=== PATIENT | male | born 1980 | race Caucasian/White ===

== ENCOUNTER 2017-01-24 09:18 | Emergency (ER) | payer SELFPAY ==
[2017-01-24 09:22] VITALS: BMI 29.0
[2017-01-24] MEDS ORDERED: ACETAMINOPHEN INJECTION 100 ML IVPB ONE (10:28)
[2017-01-24 10:40] LABS: PH,URINE 5.5 (4.5-8); URINE APPEARANCE Clear; URINE BILIRUBIN 1+ (NEGATIVE); URINE BLOOD Negative (NEGATIVE); URINE GLUCOSE (UA) Trace (NEGATIVE); URINE KETONE Trace (NEGATIVE); URINE LEUK ESTERASE Negative (NEGATIVE); URINE NITRITE Negative (NEGATIVE)
[2017-01-24 10:42] LABS: MCH 30.8 pg (25.7-33.7); MCHC 34.2 g/dl (32.0-35.9); MEAN CELL VOLUME 90.2 fl (80-96); MEAN PLT VOLUME 9.3 fl (7.5-11.1); PLATELET COUNT 232 K/MM3 (134-434); RDW 12.2 % (11.9-15.9); URINE COLOR YELLOW; URINE PROTEIN 2+ (NEGATIVE); WHITE BLOOD COUNT 18.2 K/mm3 (4.0-10.8)
[2017-01-24 10:43] LABS: URINE BACTERIA MODERATE /hpf (NEGATIVE); URINE RBC 0-3 /hpf (0-3); URINE WBC 0-3 (3-5)
[2017-01-24 11:10] LABS: ALBUMIN 4.3 g/dl (3.5-5.0); ALK PHOS 64 U/L (32-92); ANION GAP 8 (8-16); CALCIUM 9.1 mg/dl (8.4-10.2); CO2 25 mmol/L (22-28); GLUCOSE,RANDOM 142 mg/dl (74-106); SGOT/AST 21 U/L (10-42); SGPT/ALT 18 U/L (10-40); TOT PROT 8.3 g/dl (6.4-8.3)
[2017-01-24 11:12] LABS: PLATELET ESTIMATE ADEQUATE (NORMAL)
[2017-01-24 11:43] LABS: BILIRUBIN,TOTAL 0.4 mg/dl (0.2-1.0)
[2017-01-24] MEDS ORDERED: KETOROLAC TROMETHAMINE 30 MG/1 ML VIAL ONE (12:24)
[2017-01-24 12:29] VITALS: PULSE 95; TEMP 99.5
--- NOTE | 2017-01-24 13:00 | PDOC ---
History of Present Illness - General Chief Complaint: Cold Symptoms Stated Complaint: FEVER Time Seen by Provider: 01/24/17 09:20 History Source: Patient Exam Limitations: No Limitations - History of Present Illness Initial Comments: 01/24/17 12:39 The patient is a 36M with no PMH who presents to the ED with multiple complaints. The patient states that he "has the flu" with sharp pains in his abdomen. The patient has had the flu before and states this is exactly like it, with accompanying muscle aches, night sweats, fever and chills. The abdominal pain is diffuse, does not radiate, and "sometimes" effects his chest. Denies CP , SOB. Past History - Past Medical History Allergies/Adverse Reactions: Allergies Allergy/AdvReac Type Severity Reaction Status Date / Time No Known Allergies Allergy Verified 01/24/17 09:19 Home Medications: Ambulatory Orders NK [No Known Home Medication] 01/24/17 Other medical history: DENIES - Psycho/Social/Smoking Cessation Hx Anxiety: No Suicidal Ideation: No Smoking History: Current every day smoker Number of Cigarettes Smoked Daily: 6 Information on smoking cessation initiated: Yes 'Breaking Loose' booklet given: 01/24/17 Hx Alcohol Use: Yes Drug/Substance Use Hx: No Substance Use Type: Alcohol Review of Systems - Review of Systems Able to Perform ROS?: Yes Is the patient limited Malagasy proficient: No Constitutional: Yes: Chills, Fever, Night Sweats HEENTM: Yes: Throat Pain Respiratory: No: Cough, Shortness of Breath Cardiac (ROS): No: Chest Pain ABD/GI: Yes: Difficulty Swallowing, Other (abd pain). No: Constipated, Diarrhea , Nausea, Poor Appetite, Poor Fluid Intake, Vomiting, Abdominal cramping : No: Burning, Dysuria, Discharge, Hematuria Neurological: No: Headache, Numbness, Tingling, Weakness *Physical Exam - Vital Signs Last Vital Signs Temp Pulse Resp BP Pulse Ox 99.5 F 95 H 18 138/84 99 01/24/17 12:28 01/24/17 12:28 01/24/17 12:28 01/24/17 12:28 01/24/17 12:28 - Physical Exam General Appearance: Yes: Nourished, Appropriately Dressed HEENT: positive: Normal Voice, Tonsillar Erythema, Hearing Grossly Normal. negative: TM Bulging, TM Dull, TM Erythema Neck: positive: Supple. negative: Rigid Respiratory/Chest: positive: Lungs Clear, Normal Breath Sounds. negative: Chest Tender, Respiratory Distress, Accessory Muscle Use, Rhonchi, Stridor, Wheezing Cardiovascular: positive: Regular Rhythm, Regular Rate, S1, S2. negative: Diastolic Murmur, Systolic Murmur Gastrointestinal/Abdominal: positive: Tender, Soft, Tenderness (diffuse). negative: Guarding, Rebound Integumentary: positive: Warm, Diaphoresis Neurologic: positive: Fully Oriented, Alert, Normal Mood/Affect, Motor Strength / ED Treatment Course - LABORATORY CBC & Chemistry Diagram: 01/24/17 10:25 01/24/17 10:25 - ADDITIONAL ORDERS Additional order review: Laboratory Results 01/24/17 01/24/17 10:25 10:25 Sodium 132 L Potassium 3.5 Chloride 99 Carbon Dioxide 25 Anion Gap 8 BUN 13 Creatinine 1.0 Creat Clearance w eGFR > 60 Random Glucose 142 H Calcium 9.1 Total Bilirubin 0.4 AST 21 ALT 18 Alkaline Phosphatase 64 Total Protein 8.3 Albumin 4.3 Urine Color Yellow Urine Appearance Clear Urine pH 5.5 Ur Specific [place] >= 1.030 H Urine Protein 2+ H Urine Glucose (UA) Trace Urine Ketones Trace Urine Blood Negative Urine Nitrite Negative Urine Bilirubin 1+ H Urine Urobilinogen 1.0 Urine RBC 0-3 Urine WBC 0-3 Ur Epithelial Cells Moderate Urine Bacteria Moderate Hyaline Casts 3-5 01/24/17 09:24 Group A Strep Rapid Antigen - Final Throat NEGATIVE FOR THE ANTIGEN OF BETA HEMOLYTIC STREP GROUP A 01/24/17 10:25 RBC 5.42 MCV 90.2 MCHC 34.2 RDW 12.2 MPV 9.3 Neutrophils % Y Lymphocytes % Y Medical Decision Making - Medical Decision Making 01/24/17 13:04 Patient is a 36M with flu-like symptoms and abdominal pain. CT was ordered by attending and shows sigmoid colon diverticulitis with gross free air. Dr. Fierro has been called and is aware of the patient. Hospitalist raven Magana IVF. 01/24/17 13:14 Spoke with Kristyn Yi NP and she recommends transfer to [facility]. Will discuss the transfer with Dr. Whitlock. 01/24/17 13:23 Dr. Whitlock is speaking with the family on the phone with regards to the patient 's options. Denia [employer] LIEUT[employer]NT insists on transfer to [facility]. Face sheet will be faxed. 01/24/17 15:17 Mother does not want patient transferred to [facility] facility and wants AMA form. Patient signed AMA form and will leave with all reports and labs and CT imaging. I discussed with the worst case scenario, which includes , for the patient. Patient agrees. *DC/Admit/Observation/Transfer Diagnosis at time of Disposition: Diverticulitis of colon with perforation Qualifiers: Diverticulitis bleeding: without bleeding Qualified Code(s): K57.20 - Diverticulitis of large intestine with perforation and abscess without bleeding - Discharge Dispostion Disposition: AGAINST MEDICAL ADVICE Condition at time of disposition: Guarded Admit: No
[2017-01-24] MEDS ORDERED: PIPERACILLIN/TAZOB 3.375 GM/50 ML PRE-DOCKED IV ONE (13:01)
[2017-01-24] MEDS ORDERED: PIPERACILLIN/TAZOBACTAM 3.375 GM VIAL IVPB ONE (13:06)
[2017-01-24] MEDS ORDERED: ACETAMINOPHEN 1000 MG/100 ML VIAL (NON FORMULARY) IVPB ONE (13:37)
[2017-01-24] MEDS ORDERED: KETOROLAC TROMETHAMINE 30 MG/1 ML VIAL IVPUSH ONE (13:39)
--- NOTE | 2017-01-24 13:42 | HP ---
CHIEF COMPLAINT: abdominal pain PCP: "I don't have a doctor" HISTORY OF PRESENT ILLNESS: Patient is a 36 y/o male with a past medical history of asthma (last exacerbation was 10 years ago). patient reports lower abdominal pain, chills and tactile fever since yesterday evening. He reports generalized bodyaches with sharp lower abdominal pain today and sought evaluation in the emergency department. 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 Smoking: "a couple of cigarrettes daily" Alcohol: social Drugs: none Family History: mother alive and well Allergies No Known Allergies Allergy (Verified 01/24/17 09:19) HOME MEDICATIONS: Home Medications Medication Instructions Recorded NK [No Known Home Medication] 01/24/17 REVIEW OF SYSTEMS CONSTITUTIONAL: Absent: fever, chills, diaphoresis, generalized weakness, malaise, loss of appetite, weight change HEENT: Absent: rhinorrhea, nasal congestion, throat pain, throat swelling, difficulty swallowing, mouth swelling, ear pain, eye pain, visual changes CARDIOVASCULAR: Absent: chest pain, syncope, palpitations, irregular heart rate, lightheadedness , peripheral edema RESPIRATORY: Absent: cough, shortness of breath, dyspnea with exertion, orthopnea, wheezing, stridor, hemoptysis GASTROINTESTINAL: present: abdominal pain Absent: abdominal distension, nausea, vomiting, diarrhea, constipation, melena , hematochezia GENITOURINARY: Absent: dysuria, frequency, urgency, hesitancy, hematuria, flank pain, genital pain MUSCULOSKELETAL: Absent: myalgia, arthralgia, joint swelling, back pain, neck pain SKIN: Absent: rash, itching, pallor HEMATOLOGIC/IMMUNOLOGIC: Absent: easy bleeding, easy bruising, lymphadenopathy, frequent infections ENDOCRINE: Absent: unexplained weight gain, unexplained weight loss, heat intolerance, cold intolerance NEUROLOGIC: Absent: headache, focal weakness or paresthesias, dizziness, unsteady gait, seizure, mental status changes, bladder or bowel incontinence PSYCHIATRIC: Absent: anxiety, depression, suicidal or homicidal ideation, hallucinations. PHYSICAL EXAMINATION Vital Signs - 24 hr 01/24/17 01/24/17 09:18 12:28 Temperature 99.4 F 99.5 F Pulse Rate 97 H Pulse Rate [ 95 H Right] Respiratory 18 18 Rate Blood Pressure 140/79 Blood Pressure 138/84 [Left Arm] O2 Sat by Pulse 98 99 Oximetry (%) GENERAL: Awake, alert, and fully oriented, in no acute distress. HEAD: Normal with no signs of trauma. EYES: Pupils equal, round and reactive to light, extraocular movements intact, sclera anicteric, conjunctiva clear. No lid lag. EARS, NOSE, THROAT: Ears normal, nares patent, oropharynx clear without exudates. Moist mucous membranes. NECK: Normal range of motion, supple without lymphadenopathy, JVD, or masses. LUNGS: Breath sounds equal, clear to auscultation bilaterally. No wheezes, and no crackles. No accessory muscle use. HEART: Regular rate and rhythm, normal S1 and S2 without murmur, rub or gallop. ABDOMEN: Soft, diffuse abdominal pain tenderness, hypoactive bowel sounds, not distended, no guarding, no rebound, no masses. No hepatomegaly or splenomegaly. MUSCULOSKELETAL: Normal range of motion at all joints. No bony deformities or tenderness. No CVA tenderness. UPPER EXTREMITIES: 2+ pulses, warm, well-perfused. No cyanosis. No clubbing. No peripheral edema. LOWER EXTREMITIES: 2+ pulses, warm, well-perfused. No calf tenderness. No peripheral edema. NEUROLOGICAL: Cranial nerves II-XII intact. Normal speech. Normal gait. PSYCHIATRIC: Cooperative. Good eye contact. Appropriate mood and affect. SKIN: Warm, dry, normal turgor, no rashes or lesions noted, normal capillary refill. Laboratory Results - last 24 hr 01/24/17 01/24/17 01/24/17 10:25 10:25 10:25 WBC 18.2 H RBC 5.42 Hgb 16.7 Hct 48.9 MCV 90.2 MCH 30.8 MCHC 34.2 RDW 12.2 Plt Count 232 MPV 9.3 Neutrophils % Y Neutrophils % (Manual) 69 Band Neuts % (Manual) 9 Lymphocytes % Y Lymphocytes % (Manual) 15 Monocytes % (Manual) 4 Platelet Estimate Adequate Sodium 132 L Potassium 3.5 Chloride 99 Carbon Dioxide 25 Anion Gap 8 BUN 13 Creatinine 1.0 Creat Clearance w eGFR > 60 Random Glucose 142 H Calcium 9.1 Total Bilirubin 0.4 AST 21 ALT 18 Alkaline Phosphatase 64 Total Protein 8.3 Albumin 4.3 Urine Color Yellow Urine Appearance Clear Urine pH 5.5 Ur Specific [place] >= 1.030 H Urine Protein 2+ H Urine Glucose (UA) Trace Urine Ketones Trace Urine Blood Negative Urine Nitrite Negative Urine Bilirubin 1+ H Urine Urobilinogen 1.0 Urine RBC 0-3 Urine WBC 0-3 Ur Epithelial Cells Moderate Urine Bacteria Moderate Hyaline Casts 3-5 ASSESSMENT/PLAN: F/E/N - npo-->ivf - replete lyes prn ppx - pepcid - hold ac for pending or dispo: lengthy conversation with patient and mother, both patient and mother declines transfer to [facility], patient made aware if his condition detoriates he will require emergent intervention that is not available at [facility] after 4pm and as a result his care will be delayed which may result in , patient and mother verbalize understanding and admantly decline transfer to [facility]. patient t requires inpatient admission Problem List - Problem (1) Perforation of sigmoid colon due to diverticulitis Assessment/Plan: - continue zosyn, appreciate ID input for abx clearence - npo-->ivf - lengthy conversation with patient, requesting to defer surgery at this time and wishes to continue IV abx for the next 12 hours and re-evaluate. - Dr Fierro, general surgeon consulted and following Code(s): K57.20 - DVTRCLI OF LG INT W PERFORATION AND ABSCESS W/O BLEEDING (2) Asthma Code(s): J45.909 - UNSPECIFIED ASTHMA, UNCOMPLICATED Visit type - Emergency Visit Emergency Visit: Yes Care time: The patient presented to the Emergency Department on the above date and was hospitalized for further evaluation of their emergent condition. - New Patient This patient is new to me today: Yes Date on this admission: 01/24/17 - Critical Care Critical Care patient: No
[2017-01-24 13:43] VITALS: BP 140/79
[2017-01-24] MEDS ORDERED: SODIUM CHLORIDE 2,000 ML IV SCH (13:45)
[2017-01-24] MEDS ORDERED: ACETAMINOPHEN 325 MG TABLET (FP) PO PRN (14:06)
[2017-01-24] MEDS ORDERED: HYDROmorphone HCL CARPU-JECT 1 MG/1 ML DISP.SYRIN IVPB PRN (14:15)
[2017-01-24] MEDS ORDERED: ALBUTEROL SO4 0.083% IH SOL 2.5 MG/3 ML VIAL.NEB. NEB PRN (14:17)
[2017-01-24] MEDS ORDERED: morphine CARPU-JECT 4 MG/1 ML DISP.SYRIN IVPUSH ONE (14:29)
[2017-01-24] MEDS ORDERED: SODIUM CHLORIDE 0.9%/KCL 1,000 ML IV SCH (14:30)
--- NOTE | 2017-01-24 14:36 | PN ---
Progress Note (short form) - Note Progress Note: Surgery 36m with two days of flu symptoms who developed abd pain. wbc 18. no fever. ct with free air and likely perforated diverticulitis. spoke with patient and mother on phone and offered exploratory surgery now at [place] with likely colostomy. Mother (who is a nurse) and son both refuse surgery and want to attempt medical management. Since [facility] is closed for emergency surgery after 4pm, patient will have to be transferred to [facility] in case he deteriorates. The mother is not happy and does not want her son sent to [place]. "i dont mind staying here but I dont want to go to [place]" keep npo. recommend zosyn. If patient deteriorates will need lapaorotomy. Pt and mother assume risk of worsening sepsis and delay in diagnosis of malignancy (if this is not diverticulitis) Since plans are being made for transfer will formally evaluate on arrival to [facility].
[2017-01-24] MEDS ORDERED: morphine CARPU-JECT 4 MG/1 ML DISP.SYRIN ONE (14:51)
[2017-01-24 19:26] LABS: REACTIVE LYMPHOCYTES 3 % (0-80)
[2017-01-24] MEDS ORDERED: FAMOTIDINE 20 MG/50 ML IVPB 50 ML IVPB SCH (22:00)
[2017-01-24] MEDS ORDERED: DOCUSATE SODIUM 100 MG CAPSULE (FP) PO SCH (22:00)
[2017-01-25] MEDS ORDERED: NICOTINE 14 MG/24 HOURS TOPICAL PATCH TD SCH (10:00)
--- NOTE | 2017-01-25 12:06 | PDOC ---
Attending Attestation - Resident Resident Name: Jose E Toth - ED Attending Attestation I have performed the following: I have examined & evaluated the patient, The case was reviewed & discussed with the resident, I agree w/resident's findings & plan, Exceptions are as noted - HPI HPI: 36 y/o male walked in along with his mother complaining of fever and sore throat of new onset. At the initial presentation denied any other complaints. During physical examination he recalled having abdominal pain, mostly diffuse. 01/25/17 11:59 - Physicial Exam PE: Alert, oriented x3, mildly anxious, answering questions after interacting with his mother present here. Uncomfortable with mild to moderate distress. Head WILFRIDO, hyperemic pharynx, minimally enlarged latero-cervical lymph nodes, neck supple, lings clear, heart S1 S2. Abdomen exquisite tenderness at deep palpation in the left lower quadrant. No bruits, no masses felt 01/25/17 12:02 - Critical Care Time Total Critical Care Time: 30 (base on my PE agressive dg & treatment planned) Critical Care Statement: The care of this patient involved high complexity decision making to prevent further life threatening deterioration of the patient 's condition and/or to evaluate & treat vital organ system(s) failure or risk of failure. - Medical Decision Making After physical exam, discussing with patient, his mother and interacting with the ER resident, suspicion of serious intra abdomianl process, diverticulitis, abscess were raised. Blood work Imaging ordered. Fever and pain control done, iv fluids, atbc ordered Impression diverticular abscess/perforation. Advised inpatient admission Surgical attending dr Fierro contacted. He discussed with patient, his mother. Since the potential serious complications to occur, the [employer]HER Hospitalist and surgical attending advised patient to be admitted at the [facility]. The patient and his mother refused if they couldn't be admitted at [facility]. We attempted to convince them, Pat the Nurse [employer] Ins[employer] Installer involved. They choose to sign AMA, all information were handled they will go to [facility]. Patient looked stable, alert to be transported with his mother' car 01/25/17 12:08
--- NOTE | 2017-01-28 07:37 | DS ---
Physical Exam: SUBJECTIVE: Patient seen and examined, mother at bedside, requesting immediate discharge, patient and mother decline transfer to [facility] for further management. Patient are requesting to be discharge AMA. OBJECTIVE: Patient is a 36 y/o male with a past medical history of asthma (last exacerbation was 10 years ago). patient reports lower abdominal pain, chills and tactile fever since yesterday evening. He reports generalized bodyaches with sharp lower abdominal pain today and sought evaluation in the emergency department. ER course was notable for: (1) ct of ab/pelvis with contrast: perforated acute sigmoid diverticulitis with gross free air, no drainable collection (2)wbc 18.2 (3) surgery, Dr Fierro consulted by ED physician PHYSICAL EXAM GENERAL: Awake, alert, and fully oriented, in no acute distress. HEAD: Normal with no signs of trauma. EYES: Pupils equal, round and reactive to light, extraocular movements intact, sclera anicteric, conjunctiva clear. No lid lag. EARS, NOSE, THROAT: Ears normal, nares patent, oropharynx clear without exudates. Moist mucous membranes. NECK: Normal range of motion, supple without lymphadenopathy, JVD, or masses. LUNGS: Breath sounds equal, clear to auscultation bilaterally. No wheezes, and no crackles. No accessory muscle use. HEART: Regular rate and rhythm, normal S1 and S2 without murmur, rub or gallop. ABDOMEN: Soft, diffuse abdominal pain tenderness, hypoactive bowel sounds, not distended, no guarding, no rebound, no masses. No hepatomegaly or splenomegaly. MUSCULOSKELETAL: Normal range of motion at all joints. No bony deformities or tenderness. No CVA tenderness. UPPER EXTREMITIES: 2+ pulses, warm, well-perfused. No cyanosis. No clubbing. No peripheral edema. LOWER EXTREMITIES: 2+ pulses, warm, well-perfused. No calf tenderness. No peripheral edema. NEUROLOGICAL: Cranial nerves II-XII intact. Normal speech. Normal gait. PSYCHIATRIC: Cooperative. Good eye contact. Appropriate mood and affect. SKIN: Warm, dry, normal turgor, no rashes or lesions noted, normal capillary refill. LABS CBC WBC 18.2 K/mm3 (4.0-10.8) H 01/24/17 10:25 RBC 5.42 M/mm3 (4.00-5.60) 01/24/17 10:25 Hgb 16.7 GM/dl (11.7-16.9) 01/24/17 10:25 Hct 48.9 % (35.4-49) 01/24/17 10:25 MCV 90.2 fl (80-96) 01/24/17 10:25 MCH 30.8 pg (25.7-33.7) 01/24/17 10:25 MCHC 34.2 g/dl (32.0-35.9) 01/24/17 10:25 RDW 12.2 % (11.9-15.9) 01/24/17 10:25 Plt Count 232 K/MM3 (134-434) 01/24/17 10:25 MPV 9.3 fl (7.5-11.1) 01/24/17 10:25 Neutrophils % Y 01/24/17 10:25 Neutrophils % (Manual) 69 % (42.8-82.8) 01/24/17 10:25 Band Neuts % (Manual) 9 % (0-10) 01/24/17 10:25 Lymphocytes % Y 01/24/17 10:25 Lymphocytes % (Manual) 15 % (8-40) 01/24/17 10:25 Monocytes % (Manual) 4 % (3.8-10.2) 01/24/17 10:25 Platelet Estimate Adequate (NORMAL) 01/24/17 10:25 CMP Sodium 132 mmol/L (136-145) L 01/24/17 10:25 Potassium 3.5 mmol/L (3.5-5.1) 01/24/17 10:25 Chloride 99 mmol/L (98-107) 01/24/17 10:25 Carbon Dioxide 25 mmol/L (22-28) 01/24/17 10:25 Anion Gap 8 (8-16) 01/24/17 10:25 BUN 13 mg/dl (7-18) 01/24/17 10:25 Creatinine 1.0 mg/dl (0.6-1.3) 01/24/17 10:25 Creat Clearance w eGFR > 60 (>60) 01/24/17 10:25 Random Glucose 142 mg/dl (74-106) H 01/24/17 10:25 Lactic Acid 0.9 mmol/L (0.4-2.0) 01/24/17 14:03 Calcium 9.1 mg/dl (8.4-10.2) 01/24/17 10:25 Total Bilirubin 0.4 mg/dl (0.2-1.0) 01/24/17 10:25 AST 21 U/L (10-42) 01/24/17 10:25 ALT 18 U/L (10-40) 01/24/17 10:25 Alkaline Phosphatase 64 U/L (32-92) 01/24/17 10:25 Total Protein 8.3 g/dl (6.4-8.3) 01/24/17 10:25 Albumin 4.3 g/dl (3.5-5.0) 01/24/17 10:25 HOSPITAL COURSE: * admitted from the emergency department for perforation of sigmoid colon due to diverticulitis. patient was treated with zosyn. patient was kept npo throughout admission. Lengthy conversation with patient, requesting to defer surgery at this time and wishes to continue IV abx for the next 12 hours and re- evaluate. Dr Fierro, general surgeon consulted and following. PLAN The patient insists on leaving the Hospital and is signing out against medical advice. Care being refused: transfer to [facility]. The patient understands the risks and complications that may result from the refusal of medical care which may include and permanent disability. The patient has the mental capacity of understanding the risks of refusing care and is capable of making an informed decision. The patient was instructed to return to the Emergency Department should he change his mind regarding medical care or should his/her condition worsen. The patient signed the Against Medical Advice form. Discharge: 01/28/17 Minutes to complete discharge: 45 Discharge Summary Reason For Visit: FEVER Condition: Guarded - Instructions Disposition: AGAINST MEDICAL ADVICE - Home Medications Comprehensive Discharge Medication List: Ambulatory Orders NK [No Known Home Medication] 01/24/17 Problem List - Problems (1) Perforation of sigmoid colon due to diverticulitis Code(s): K57.20 - DVTRCLI OF LG INT W PERFORATION AND ABSCESS W/O BLEEDING (2) Asthma Code(s): J45.909 - UNSPECIFIED ASTHMA, UNCOMPLICATED This patient is new to me today: No Emergency Visit: Yes Care time: The patient presented to the Emergency Department on the above date and was hospitalized for further evaluation of their emergent condition. Critical Care patient: No - Discharge Referral Referred to [facility] Med P.C.: No
== END 2017-01-24 15:23 | disposition left against medical advice (07) ==
LOC: FER 09:18
PROC: 3E0337Z Introduction of Electrolytic and Water Balance Substance into Peripheral Vein, Percutaneous Approach (ICD-10-PCS; principal; 2017-01-24)
PROC: 3E03329 Introduction of Other Anti-infective into Peripheral Vein, Percutaneous Approach (ICD-10-PCS; 2017-01-24)
PROC: 3E033NZ Introduction of Analgesics, Hypnotics, Sedatives into Peripheral Vein, Percutaneous Approach (ICD-10-PCS; 2017-01-24)
PROC: 3E0333Z Introduction of Anti-inflammatory into Peripheral Vein, Percutaneous Approach (ICD-10-PCS; 2017-01-24)
DX: K57.20 Diverticulitis of large intestine with perforation and abscess without bleeding (principal); F17.210 Nicotine dependence, cigarettes, uncomplicated
CPT/HCPCS: 36415; 74177-TC; 80053; 81003; 81015; 83605; 85025; 86850; 86900; 86901; 87040; 87070; 87086; 87430; 87804; 99283-25